=== PATIENT | female | born 1985 | race Caucasian/White ===

== ENCOUNTER 2017-05-02 06:24 | Inpatient (IN) | payer BC, OTHER ==
--- NOTE | 2017-04-24 14:50 | PAT Medication Instructions ---
Service Date April 24, 2017. Current Home Medication List Levothyroxine Sodium (Levothyroxine Sodium), 1 TAB PO QAM Multivit/Min/Iron/Fol Ac/Pren ( Vitamin), 1 TAB PO QAM Medication Instructions For Your Scheduled Surgery - Hold the following medications the morning of surgery: Multivit/Min/Iron/Fol Ac/Pren ( Vitamin), 1 TAB PO QAM - Take the following medications the morning of surgery with a sip of water: Levothyroxine Sodium (Levothyroxine Sodium), 1 TAB PO QAM If you have any questions please call us at [phone] or [phone] ( Zahra) or [phone]
[2017-04-24 15:02] LABS: BASO % 0.2 %; BASO ABS # 0.03 K/uL (0-0.2); COMPLETE YES; EOS % 1.4 %; HEMATOCRIT 35.7 % (37-47); IG% 0.4 %; LYMPH % 25.2 %; LYMPH ABS # 3.71 K/uL (1.2-3.4); MEAN CELL VOLUME 86.7 fL (80-100); MEAN CORPUSCULAR HEMOGLOBIN 28.9 pg (25-34); MEAN CORPUSCULAR HGB CONC 33.3 g/dl (32-36); MEAN PLATELET VOLUME 9.9 fL (7.4-10.4); MONO % 6.9 %; NEUT % 65.9 %; PLATELET COUNT 300 K/uL (130-400); RED BLOOD COUNT 4.12 M/uL (4.2-5.4); WHITE BLOOD COUNT 14.74 K/uL (4.8-10.8)
[2017-05-02] VITALS (12 sets, daily range): BP systolic 87–93; BP diastolic 55–61; PULSE 80–82; TEMP 36.9–37; O2SAT 95–96; Ht 167.6 cm; Wt 108.0 kg
[~2017-05-02] VITALS: Ht 167.6 cm; Wt 108.0 kg
[~2017-05-02 06:24] MED LIST: CEFAZOLIN IV 3,000 MG in DEXTROSE 5% 50ML IV SCH; CITRIC ACID/SODIUM CITRATE 15 ML UDC PO SCH; LACTATED RINGER'S 1000ML 1,000 ML IV SCH; LEVO25TA5 PO; PRENTAB26 PO
[2017-05-02] MEDS ORDERED: OXYTOCIN INJ 10 UNITS/ML VIAL ONE (06:43)
[2017-05-02] MEDS ORDERED: PHENYLEPHRINE HCL INJ 10 MG/ML VIAL ONE (06:43)
[2017-05-02] MEDS ORDERED: MoRPHine SULFATE PF 1 MG/ML 10 ML AMP/VIAL ONE (06:43)
--- NOTE | 2017-05-02 07:37 | History & Physical Bridge Note ---
H&P Re-Evaluation Bridge Note: I have examined the patient, reviewed the History & Physical and in the interval since the performance of the History & Physical I have noted the following changes of clinical significance: No changes noted
[2017-05-02 08:29] LABS: HEMATOCRIT 37.6 % (37-47); MEAN CELL VOLUME 87.4 fL (80-100); MEAN CORPUSCULAR HEMOGLOBIN 28.4 pg (25-34); MEAN PLATELET VOLUME 10.4 fL (7.4-10.4); PLATELET COUNT 334 K/uL (130-400); WHITE BLOOD COUNT 13.71 K/uL (4.8-10.8)
[2017-05-02 08:43] LABS: MEAN CORPUSCULAR HGB CONC 32.4 g/dl (32-36)
[2017-05-02] MEDS ORDERED: ONDANSETRON INJ 2 MG/ML 2 ML VIAL ONE (09:18)
[2017-05-02] MEDS ORDERED: SENNA 8.6 MG TAB PO PRN (10:15)
[2017-05-02] MEDS ORDERED: DIPHTHERIA/TETANUS/PERTUSSIS 0.5 ML SYR/VIAL IM. ONE (10:15)
[2017-05-02] MEDS ORDERED: SUPERCREAM 0.870 % 15GM JAR EXT PRN (10:15)
[2017-05-02] MEDS ORDERED: HYDROCORTISONE ACETATE 25 MG SUPP PR PRN (10:15)
[2017-05-02] MEDS ORDERED: MAGNESIUM HYDROXIDE SUSP 30 ML UDC PO PRN (10:15)
[2017-05-02] MEDS ORDERED: MEASLES, MUMPS & RUBELLA VIRUS VIAL SQ. ONE (10:15)
[2017-05-02] MEDS ORDERED: LANOLIN OINT EXT PRN ×2 (10:15)
[2017-05-02] MEDS ORDERED: BENZOCAINE 20% AER SPR 82.5 GM CAN EXT PRN (10:15)
--- NOTE | 2017-05-02 10:17 | [facility] Post Operative Brief Note ---
Immediate Operative Summary Operative Date May 02, 2017. Pre-Operative Diagnosis History of Caesarean Section;Declines ; Desires Permanent Sterilization Post-Operative Diagnosis Same Procedure(s) Performed Repeat Caesarean Section; Delivery of a live female child at 0914 [facility] Surgeon Dr. Cerda Helix Coil Winder Surgeon(s) Dr. Ahuja Estimated Blood Loss 600 cc Findings VIABLE FEMALE , APGARS 8/9 Fluids (cc crystalloids) 1700 LR Specimens cord blood placenta-hold portions of left and right fallopian tubes Drains FERMIN 400 ML CLEAR URINE Anesthesia SPINAL Complication(s) None Disposition L&D
[2017-05-02] MEDS ORDERED: SODIUM CHLORIDE 0.9% 1000ML 1,000 ML IV PRN (10:18)
[2017-05-02] MEDS ORDERED: NALOXONE HCL INJ 1 MG in SODIUM CHLORIDE 0.9% 1000ML 1,000 ML IV PRN (10:18)
[2017-05-02] MEDS ORDERED: LACTATED RINGER'S 1000ML 500 ML IV PRN (10:18)
[2017-05-02] MEDS ORDERED: NALOXONE HCL INJ 0.08 MG in SYRINGE 1.8 ML IV PRN (10:18)
--- NOTE | 2017-05-02 10:18 | Anesthesiology Progress Note ---
Anesthesia Post Op Note Date & Time May 02, 2017 at 10:18 Notes Mental Status: alert / awake / arousable, participated in evaluation Pt Amnestic to Procedure: Yes Nausea / Vomiting: adequately controlled Pain: adequately controlled Airway Patency, RR, SpO2: stable & adequate BP & HR: stable & adequate Hydration State: stable & adequate Neuraxial Anesthesia: was administered, sensory block is resolving Anesthetic Complications: no major complications apparent
[2017-05-02] MEDS ORDERED: MEPERIDINE HCL 25 MG/ML CARP IV PRN (10:30)
[2017-05-02] MEDS ORDERED: NALOXONE HCL 0.4 MG/1 ML VIAL/CARP IV PRN (10:30)
[2017-05-02] MEDS ORDERED: EpHEDrine SULFATE INJ 50 MG/ML AMP IV PRN (10:30)
[2017-05-02] MEDS ORDERED: NO NARCOTICS OR SEDATIVES SCH (10:30)
[2017-05-02] MEDS ORDERED: MoRPHine SULFATE PF 1 MG/ML 10 ML AMP/VIAL INT SPINAL PRN (10:30)
[2017-05-02] MEDS ORDERED: ONDANSETRON INJ 2 MG/ML 2 ML VIAL IV PRN (10:30)
[2017-05-02] MEDS ORDERED: NALBUPHINE HCL INJ 10 MG/ML AMP IV PRN (10:30)
[2017-05-02] MEDS ORDERED: DiphenhydrAMINE HCL 50 MG/ML VIAL IV PRN (10:30)
[2017-05-02] MEDS ORDERED: MoRPHine SULFATE 2 MG/ML CARP IV PRN (10:30)
--- NOTE | 2017-05-02 11:22 | OPERATIVE REPORT ---
DATE OF OPERATION: 05/02/2017 PREOPERATIVE DIAGNOSES: The patient is a 31-year-old G2, P1-0-0-1 at 39 weeks and 1 day of gestation 1)History of prior and declined TOLAC/ trial of labor after 2) Multipara with desire for permanent sterilization and and declined nonsurgical reversible contraceptive option. POSTOPERATIVE DIAGNOSIS: Same. PROCEDURES: Repeat low transverse with Pfannenstiel skin incision and bilateral tubal ligation with Shelby method. SURGEON: Dr. Hilton. CIRCULATION LIBRARIAN: Dr. Ahuja. ESTIMATED BLOOD LOSS: 600ml. FLUIDS: 1700 mL of lactated Ringer's. DRAINS: Orozco: 400 mL of clear urine ANESTHESIA: Spinal Anesthesia by Dr. Hernandez. COMPLICATIONS: None. FINDINGS: Baby was a viable female , in cephalic presentation, Apgars 8/ 9, delivered at 9:14 a.m. Weight was 3190 grams. MATERNAL FINDINGS: Normal uterus, fallopian tubes and ovaries. PROCEDURE: The patient was taken to the operating room where spinal anesthesia was given without difficulty. She was placed in dorsal supine position with a leftward tilt. She was prepared and draped in usual sterile fashion. A Pfannenstiel skin incision was made from the old scar and carried through to the underlying layer of fascia with the Bovie. Fascia was incised in the midline and incision extended laterally with the help of Vanegas scissors. Lower aspect of the fascial incision was then grasped with 2 Anabelle clamps, elevated, underlying rectus muscles were dissected off sharply with Vanegas scissors and bluntly and then upper aspect of the fascial incision was then grasped with 2 Anabelle clamps, elevated, underlying rectus muscles were dissected off sharply with Vanegas scissors. Rectus muscles were in the midline. Peritoneum was identified, grasped with pickups, entered sharply with Metzenbaum scissors. Peritoneal incision was extended superiorly and inferiorly with good visualization of the bladder. Bladder blade was inserted. Vesicouterine peritoneum was grasped with 2 pickups, entered sharply with Metzenbaum scissors. Bladder flap was created digitally. Bladder blade was reinserted. Lower uterine segment was incised in transverse fashion. Incision was extended laterally with the bandage scissors. The membranes were ruptured and clear fluid was obtained. Baby's head was delivered without difficulty. Shoulders were delivered with minimal traction. Mouth and nose were suctioned. Cord was clamped x2 and cut then the baby was handed off to the awaiting zyglo inspector, Dr. Alejo. Cord blood was obtained. It was with 3-vessel cord. The placenta was delivered spontaneously intact and complete. Uterus was explored and cleared of all clots and debris and it was firm. The uterine incision was repaired with 0 Vicryl in a running locked fashion and a second imbricating layer was placed with 0 Vicryl in a running locked fashion. There was a small oozing in the middle of the incision which was controlled with 0 Vicryl and excellent hemostasis was achieved. The right fallopian tube was identified, grasped with Whitley clamps and the mesosalpinx was entered with #2-0 plain catgut and the tube was tied under the Chancellor clamps and a loop was formed and another tie was placed under the first tie and about 2-3 cm section of the fallopian tube was excised and sent to pathology. Good hemostasis was achieved. Attention was turned to the left fallopian tube. It was held with the Chancellor clamps and the mesosalpinx was entered with the 2-0 plain catgut and the fallopian tube was tied and the loop was formed around the Chancellor clamps and it was tied and the tie was placed under the first tie and then about 2-3 cm of section of tube was excised on the left side. It was sent to pathology. Excellent hemostasis was achieved. The uterus was returned to the abdomen. Pelvis was irrigated with warm normal saline. Incision was inspected to be hemostatic again and parietal peritoneum was identified, grasped with 2 Jane clamps and reapproximated with 3-0 Vicryl in a running fashion. The rectus muscles were approximated with single U suture with 3-0 Vicryl and then the rectus fascia was reapproximated with 0 Vicryl in a running locked fashion starting from both corners and meeting in the midline. Then the subcuticular fat tissue was reapproximated with 3-0 Vicryl in a running fashion and the skin was closed with 4-0 Monocryl in a subcuticular fashion. The patient tolerated the procedure well. Sponge, lap, needle and instrument counts were correct x3. She was given 3 grams of cefazolin before surgery. She was taken to recovery room in stable condition. No complications happened and I was present during the whole procedure. I attest to the content of the Intraoperative Record and any orders documented therein. Any exceptions are noted below. JENI
[2017-05-02] MEDS: OXYTOCIN INJ 20 UNITS in LACTATED RINGER'S 1000ML 1,000 ML IV SCH ×2 (12:03→21:04)
[2017-05-02] MEDS: SIMETHICONE 80 MG CHEW PO SCH ×3 (12:43→20:27)
[2017-05-02] MEDS: KETOROLAC TROMETHAMINE 30 MG/ML VIAL IV. PRN ×2 (13:12→21:01)
[2017-05-02] MEDS ORDERED: PROMETHAZINE HCL INJ 25 MG in SODIUM CHLORIDE 0.9% 50ML 50 ML IV ONE (14:30)
[2017-05-02] MEDS: DOCUSATE SODIUM 100 MG CAP PO SCH (20:27)
[2017-05-03] VITALS (10 sets, daily range): BP systolic 94–137; BP diastolic 59–84; PULSE 76–88; TEMP 36.7–37; O2SAT 94–97
[2017-05-03] MEDS ORDERED: ONDANSETRON INJ 2 MG/ML 2 ML VIAL IV PRN (03:00)
[2017-05-03] MEDS ORDERED: PROMETHAZINE HCL INJ 25 MG in SODIUM CHLORIDE 0.9% 50ML 50 ML IV PRN (03:00)
[2017-05-03] MEDS ORDERED: OXYCODONE/ACETAMINOPHEN 5-325 TAB PO PRN (03:00)
[2017-05-03] MEDS ORDERED: DiphenhydrAMINE HCL 50 MG/ML VIAL IV PRN (03:00)
[2017-05-03] MEDS ORDERED: ZOLPIDEM TARTRATE 5 MG TAB PO PRN (03:00)
[2017-05-03] MEDS ORDERED: KETOROLAC TROMETHAMINE 30 MG/ML VIAL IV. PRN (03:00)
[2017-05-03] MEDS ORDERED: LACTATED RINGER'S 1000ML 1,000 ML IV SCH ×2 (03:00→06:45)
[2017-05-03] MEDS ORDERED: MEPERIDINE HCL 50 MG/ML CARP IV PRN ×2 (03:00)
[2017-05-03] MEDS ORDERED: DC INTRASPINAL MORPHINE ONE (03:00)
[2017-05-03] MEDS ORDERED: NURSING VERBAL MED ORDER ONE (05:00)
[2017-05-03 06:31] LABS: BASO % 0.1 %; BASO ABS # 0.02 K/uL (0-0.2); COMPLETE YES; EOS % 0.9 %; HEMATOCRIT 31.7 % (37-47); IG% 0.3 %; LYMPH % 16.8 %; MEAN CORPUSCULAR HEMOGLOBIN 29.5 pg (25-34); MEAN CORPUSCULAR HGB CONC 33.1 g/dl (32-36); MEAN PLATELET VOLUME 10.4 fL (7.4-10.4); NEUT % 73.9 %; PLATELET COUNT 275 K/uL (130-400); RED BLOOD COUNT 3.56 M/uL (4.2-5.4); WHITE BLOOD COUNT 16.06 K/uL (4.8-10.8)
--- NOTE | 2017-05-03 07:54 | OB/GYN Progress Note ---
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 Subjective conversation w/ patient, physical exam Ambulation: limited ambulation Voiding: zaldivar catheter in place Passing Gas: No Diet Tolerance: Clear Liquids Lochia: Moderate Pain: 5/10 Notes: Doing well. Pain well controlled. Incision dressing removed and is c/d/i. Lochia moderate. Tolerating clears, -BM, -flatus. Zaldivar still in place, draining clear urine. Objective Vital Signs Date Time Temp Pulse Resp B/P (MAP) Pulse Ox O2 Delivery O2 Flow Rate FiO2 05/03/17 03:45 37.0 86 20 97/66 (76) Room Air 05/03/17 03:40 20 96 05/03/17 02:40 20 95 05/03/17 01:40 18 94 05/03/17 00:40 18 94 05/03/17 00:15 36.8 76 20 94/59 (71) 95 Room Air 05/03/17 00:15 95 Room Air 05/02/17 23:40 18 96 05/02/17 22:40 18 96 05/02/17 21:40 18 95 05/02/17 20:40 20 95 05/02/17 20:15 36.9 82 18 87/55 (66) Room Air 05/02/17 19:40 18 95 05/02/17 18:40 20 96 05/02/17 17:40 20 96 05/02/17 16:40 18 95 05/02/17 15:45 20 95 05/02/17 14:50 16 96 05/02/17 14:45 96 Room Air 05/02/17 14:45 37.0 80 16 93/61 (72) 96 Room Air Physical Exam General Appearance: WELL-APPEARING Respiratory/Chest: chest non-tender, lungs clear Cardiovascular: regular rate, rhythm Abdomen: normal bowel sounds, soft Fundus: Firm Incision Description: Clean, Dry & Intact Extremities: normal range of motion, non-tender, no calf tenderness Laboratory Results Last 24 Hours Test 05/03/17 05:56 White Blood Count 16.06 K/uL Red Blood Count 3.56 M/uL Hemoglobin 10.5 g/dL Hematocrit 31.7 % Mean Corpuscular Volume 89.0 fL Mean Corpuscular Hemoglobin 29.5 pg Mean Corpuscular Hemoglobin Concent 33.1 g/dl Platelet Count 275 K/uL Mean Platelet Volume 10.4 fL Neutrophils (%) (Auto) 73.9 % Lymphocytes (%) (Auto) 16.8 % Monocytes (%) (Auto) 8.0 % Eosinophils (%) (Auto) 0.9 % Basophils (%) (Auto) 0.1 % Neutrophils # (Auto) 11.87 K/uL Lymphocytes # (Auto) 2.70 K/uL Monocytes # (Auto) 1.28 K/uL Eosinophils # (Auto) 0.14 K/uL Basophils # (Auto) 0.02 K/uL RDW Standard Deviation 45.8 fL RDW Coefficient of Variation 13.9 % Immature Granulocyte % (Auto) 0.3 % Immature Granulocyte # (Auto) 0.05 K/uL Assessment and Plan Post-Op Day Number: 1 Continue Routine Care: -Advance diet and activity as tolerated -Incision dressing removed and is clean,dy and intact -D/C ezn this AM -Continue routine postop care.
[2017-05-03] MEDS: SIMETHICONE 80 MG CHEW PO SCH ×4 (09:40→20:15)
[2017-05-03] MEDS: FERROUS SULFATE 325 MG TAB PO SCH (09:41)
[2017-05-03] MEDS: DOCUSATE SODIUM 100 MG CAP PO SCH ×2 (09:41→20:15)
[2017-05-03] MEDS: PRENATAL VITAMIN TAB PO SCH (09:41)
[2017-05-03] MEDS: IBUPROFEN 600 MG TAB PO PRN ×3 (12:09→22:53)
[2017-05-03] MEDS: OXYCODONE/ACETAMINOPHEN 5-325 TAB PO PRN ×3 (12:10→22:53)
[2017-05-03] MEDS: BISACODYL 5 MG TABEC PO ONE ×2 (22:20→23:25)
[2017-05-04] MEDS: IBUPROFEN 600 MG TAB PO PRN ×3 (04:37→16:36)
[2017-05-04] MEDS: OXYCODONE/ACETAMINOPHEN 5-325 TAB PO PRN ×4 (04:37→16:36)
[2017-05-04 07:35] VITALS: BP 119/67; PULSE 74; TEMP 36.7; O2SAT 96
[2017-05-04] MEDS ORDERED: BISACODYL 10 MG SUPP PR PRN (08:00)
[2017-05-04] MEDS: FERROUS SULFATE 325 MG TAB PO SCH (08:38)
[2017-05-04] MEDS: SIMETHICONE 80 MG CHEW PO SCH ×3 (08:38→16:35)
[2017-05-04] MEDS: PRENATAL VITAMIN TAB PO SCH (08:38)
[2017-05-04] MEDS: DOCUSATE SODIUM 100 MG CAP PO SCH (08:38)
--- NOTE | 2017-05-04 08:55 | Surgery Progress Note ---
Surgery Progress Note Date of Service May 04, 2017. Subjective Post OP Day: 2 + feeling well, + ambulating, + flatus, + pain controlled, + diet (Tolerating food), No complaints, No chest pain, No SOB, No bowel movement, No nausea, No vomiting Objective Vital Signs: Date Time Temp Pulse Resp B/P (MAP) Pulse Ox O2 Delivery O2 Flow Rate FiO2 05/03/17 23:30 36.7 84 20 137/84 (101) 97 Room Air 05/03/17 23:30 97 Room Air 05/03/17 16:40 96 Room Air 05/03/17 16:40 36.8 22 129/84 (99) 96 Room Air 05/03/17 12:05 37.0 88 18 119/80 (93) General Appearance: WD/WN, no apparent distress Head: normocephalic, atraumatic Respiratory/Chest: chest non-tender, lungs clear, normal breath sounds, no respiratory distress, no accessory muscle use Cardiovascular: regular rate, rhythm Abdomen: normal bowel sounds, non tender, non distended, soft, no organomegaly , no pulsatile mass Incision(s): clean, dry, intact, no erythema, no drainage Extremities: normal range of motion, non-tender, normal inspection, no pedal edema, no calf tenderness, normal capillary refill, pelvis stable Laboratory Results: Results Past 24 Hours Test 05/04/17 05:52 Range/Units Hemoglobin 9.8 12.0-16.0 g/dL Hematocrit 30.0 37-47 % Assessment & Plan C/sec day #2 pt doing well pt wishes to go home this M disch home with instructions
[2017-05-04] MEDS ORDERED: FRRS300 PO (09:00)
[2017-05-04] MEDS ORDERED: MTR600X PO (09:00)
[2017-05-04] MEDS ORDERED: OXYC-57 PO (09:00)
[2017-05-04] MEDS ORDERED: CLC100 PO (09:00)
--- NOTE | 2017-05-04 09:01 | Discharge Instructions ---
Discharge Instructions Date of Service May 04, 2017. Admission Reason for Admission: Previous Section Discharge Discharge Diagnosis / Problem: postop Discharge Goals Goal(s): Routine recovery after Activity Recommendations Activity Limitations: as noted below ACTIVITY RECOMMENDATIONS: * Gradual return to full activity over the next 2-3 weeks. * No lifting - nothing heavier than baby over the next 2-3 weeks. * Do not engage in vigorous exercise, sexual activity or sports until cleared by your physician. * Do not drive or operate any motorized equipment until cleared by your physician. * You may shower/bathe daily. BREAST CARE: If you are not breast feeding: * Wear a supportive bra 24 hours a day for one to two weeks. * Avoid stimulating your breasts and nipples as much as possible during the first few weeks after delivery. * When taking a shower, have the warm water hit your back, not breasts. * When your breasts feel full, apply ice packs. Usually three to four times a day helps ease the discomfort. * Take a mild pain medication (Tylenol/Motrin) when you are uncomfortable. If breast feeding: * Use breast milk to lubricate nipples. Lansinoh cream may be used for sore nipples. You do not need to remove cream prior to breast feeding. If using a different brand of cream, check the label for directions regarding removal of cream prior to nursing. * Wear a supportive bra. * If having problems with breasts or breast feeding, call a [employer] portal consultant or your health care provider. OVER THE COUNTER MEDICATION: * For discomfort or pain, you may use Acetaminophen (Tylenol), Ibuprofen (Advil ), or Naproxen (Aleve) following the package directions. * For constipation you may use Colace following the package directions. SPECIAL CARE INSTRUCTIONS: When you are discharged from the hospital, it is important for you to follow the instructions listed below: * During the first week at home, you should be able to care for yourself and your baby. In addition, the usual light household activities are encouraged. * Limit your activities to the way you feel. Do not try to clean the house or move furniture. Be sensible. * If you actively engage in sports and have done so up until the time of your delivery, you may resume these activities as soon as you feel able. This may take up to one month or even longer. Use good judgment. * Continue to take your vitamins for at least six weeks after the of your baby. * Your diet need not be limited unless you were on a special diet before your delivery. Breast-feeding mothers need around 2500 calories per day and at least 64-80 ounces of fluid per day (8 to 10 glasses). * You should eat foods from the four major food groups. Crash diets or fad diets are to be avoided. Eating lean meats, fresh fruits and vegetables, low-fat dairy products, high fiber foods and a regular exercise program, will help you get back to your pre- weight without putting your health at risk. * Constipation is sometimes a problem after delivery. Take a mild laxative as needed. If breast feeding, Milk of Magnesia is acceptable to use. You may use a suppository or Fleets enema if no episiotomy. * A daily shower or tub bath is suggested. Be sure to thoroughly and gently dry the perineum. * A bloody vaginal discharge will usually continue until around four weeks post . A small amount of bleeding may continue for as long as six weeks. Vaginal discharge changes from the bright red bleeding after delivery to pink then brownish and finally yellowish-pink before becoming white and disappearing. * Bleeding may increase with activity. Your first period may come in 4-8 weeks. If you are breast feeding, your period may be delayed even longer. * [place] (sex) can begin whenever both you and your partner feel comfortable and do not have any form of genital infection. It is recommended that you wait at least six weeks for internal and external healing to occur. If you have questions, please talk to your health care practitioner. A condom should be used to prevent infection and . * Foreplay, gentle intercourse and lubrication is very important the first several times to prevent pain. A water-based lubricant such as K-Y jelly or Astroglide may be used. * Tampons and/or Douching should be avoided until after six weeks check-up. * If you have RH negative blood and your baby is RH positive, you will receive RHOGAM by injection prior to discharge. The nurse will give you a card to keep with you that has the date and place that you received RHOGAM after delivery. * During your care, you had a Rubella screen done to check for the presence of rubella antibodies in your blood. If your test was negative, you will receive a Rubella vaccine prior to discharge. This vaccine may cause a fever, soreness at the injection site and flu-like symptoms. If these symptoms persist, notify your health care practitioner. is not advised for three months after a Rubella vaccine. * Verbalizes understanding of car seat law as reviewed with patient nursing. * Car Seat hand-out given and reviewed with patient by nursing. * Shaken baby information reviewed with patient by nursing. Call you doctor if: * Heavy bleeding (saturating several pads an hour) or passing clots the size of your fist. * A fever >101 degrees F (38.3 degrees C) on two occasions four hours apart and /or chills. * Unusual pain in the pelvic or vaginal areas. Pain should improve each day . * Call the doctor for any increased redness, drainage or swelling around the incision and any pain unrelieved by prescribed pain medication. * Any signs or symptoms of phlebitis (possible blood clots forming in the veins ): leg pain, warm, red or swollen area on leg. * "Baby Blues" lasting longer than two weeks. If you have any questions or concerns, call your health care practitioner at . FOLLOW-UP VISIT: * Incision check (staple removal) in 1 week. Please call doctor's office at to set up appointment. * Please call the office at to schedule a 6 week examination. It is important you keep this appointment. * It is important for you to make arrangements for either yearly or twice yearly check-ups thereafter. . Current Hospital Diet Patient's current hospital diet: Regular OB Diet Discharge Diet Recommended Diet: Regular Diet Procedures Procedures Performed: Repeat Caesarean Section; Delivery of a live female child at 0914 [facility] Pending Studies Studies pending at discharge: no Medical Emergencies . Who to Call and When: Medical Emergencies: If at any time you feel your situation is an emergency, please call [phone] immediately. . Non-Emergent Contact Non-Emergency issues call your: Specialist . . "Provider Documentation" section prepared by Nicko Ahuja. . VTE Core Measure Inpt VTE Proph given/why not?: Treatment not indicated
[2017-05-04 16:00] VITALS: BP 120/82; PULSE 81; TEMP 36.8
[2017-05-04 18:45] VITALS: BP_DIAS 82; PULSE 81; TEMP 36.8
--- NOTE | 2017-05-09 15:01 | DISCHARGE SUMMARY ---
DETAILS OF ADMISSION: The patient is a 31-year-old G2, P1-0-0-1 at 39 weeks and 1 day of gestation with history of prior who declined TOLAC/ and desired repeat and permanent sterilization. She was admitted on 05/02/2017 for scheduled surgery. She had repeat low transverse and the bilateral tubal ligation and delivered a viable female infant at 9:14 a.m. See dictated operative note for details. On postop period, the patient was doing well. Vital signs stable, afebrile. Her urine output was adequate but borderline. She was given IV fluid hydration and urine output improved. Then the Orozco was discontinued. She was ambulated. She tolerated a regular diet, passed gas. Her vital signs were stable, afebrile. Her H&H was stable. She wanted to be discharged on day 2, 05/04/2017. Discharge instructions were given. Prescriptions were written for pain and she is to be followed in the office in a week for incision check. All questions were answered. JENI
== END 2017-05-04 18:45 | disposition home or self-care (01) | DRG 766 ==
LOC: C.LD 06:24 → EDSTATUS 13:38 → C.OBG 14:45
PROVIDERS: ADMIT Obstetrics & Gynecology; ATTEND Obstetrics & Gynecology
PROC: 0UB70ZZ Excision of Bilateral Fallopian Tubes, Open Approach (ICD-10-PCS; principal; 2017-05-02 08:30)
PROC: 10D00Z1 Extraction of Products of Conception, Low, Open Approach (ICD-10-PCS; principal; 2017-05-02 08:30)
DX: O99.284 Endocrine, nutritional and metabolic diseases complicating childbirth (principal); Z37.0 Single live birth; E03.9 Hypothyroidism, unspecified; O99.824 Streptococcus B carrier state complicating childbirth; O99.334 Smoking (tobacco) complicating childbirth; O34.219 Maternal care for unspecified type scar from previous cesarean delivery; O99.02 Anemia complicating childbirth; D64.9 Anemia, unspecified; E28.2 Polycystic ovarian syndrome; O34.83 Maternal care for other abnormalities of pelvic organs, third trimester; Z79.899 Other long term (current) drug therapy; Z23 Encounter for immunization; Z3A.39 39 weeks gestation of pregnancy; Z30.2 Encounter for sterilization